=== PATIENT | female | born 1980 | race Caucasian/White ===

== ENCOUNTER 2021-02-09 14:26 | Emergency (ER) | payer OTHER ==
[~2021-02-09] VITALS: Ht 170.2 cm; Wt 122.5 kg
[~2021-02-09 14:26] MED LIST: ANAPROX DS550 MG PO; BENADRYL25 MG PO; HYDROCODON-ACE1 EAC7 PO; IBUPROFEN 800800 M1 PO; NOHOMEMEDICATIONS; NORCO 5-325 TA1 EACH PO; PEPCID AC20 M1 PO; PREDNISONE 10 M10 M1 PO; PREVACID30 M1 PO; PROZAC40 MG; TRAZODONE 150150 M1 PO
[2021-02-09] MEDS ORDERED: LEXAPRO 10 MG T10 M2 PO (14:38)
[2021-02-09] MEDS ORDERED: PROTONIX40 M2 PO (14:38)
[2021-02-09] MEDS ORDERED: WELLBUTRIN XL300 MG PO (14:38)
[2021-02-09] MEDS ORDERED: TOPAMAX100 MG PO (14:39)
[2021-02-09] MEDS ORDERED: OXYBUTYNIN 5 MG5 M2 PO (14:39)
[2021-02-09 14:49] LABS: ABSOLUTE BASOPHILS 0.1 thou/uL (0.0-0.2); ABSOLUTE EOSINOPHILS 0.1 thou/uL (0.0-0.7); ABSOLUTE LYMPHOCYTES 2.5 thou/uL (0.8-5.3); ABSOLUTE MONOCYTES 0.7 thou/uL (0.0-1.2); ABSOLUTE NEUTROPHILS 7.9 thou/uL (1.6-8.1); BASOPHILS 0.7 %; EOSINOPHILS 0.8 %; HEMATOCRIT 38.9 % (37.0-47.0); HEMOGLOBIN 12.4 gm/dL (12.0-15.0); LYMPHOCYTES 21.8 %; MCH 27.4 pg (26.0-34.0); MCHC 31.9 g/dL (28.0-37.0); MCV 85.9 fL (80.0-100.0); MPV 7.2 fl. (7.2-11.1); NUCLEATED RBCS 0 /100WBC; PLATELET COUNT* 332 thou/uL (150-400); POLYS 70.7 %; RBC 4.52 mil/uL (4.20-5.00); RDW-CV 15.5 % (10.5-14.5); WBC 11.2 thou/uL (4.0-11.0)
[2021-02-09 15:00] LABS: CALCIUM 8.5 mg/dL (8.5-10.1); CREATININE 0.8 mg/dL (0.6-1.3); POTASSIUM 3.9 mmol/L (3.5-5.1)
[2021-02-09 15:02] LABS: APTT 24.5 Seconds (25.0-31.3); PROTIME 10.7 Seconds (9.20-11.50)
[2021-02-09 15:14] LABS: ALBUMIN 3.5 g/dL (3.4-5.0); CK-MB MASS 0.7 ng/mL (<0.5-3.6); TOTAL BILIRUBIN 0.3 mg/dL (<0.1-1.0)
[2021-02-09 17:08] VITALS: BP 153/92
--- NOTE | 2021-02-10 10:31 | EKG ---
[place] [address] ELECTROCARDIOGRAM REPORT Name: JERRY KNAPP Room: [facility]#: [id number] Admission: 02/09/21 Attend Phys: Discharge: 02/09/21 Date of : 76 Date of Service: 02/09/21 1430 Report #: [id number] THIS REPORT FOR: //name// [facility] ED Test Date: 2021-02-09 Test Time: 14:30:09 Pat Name: JERRY KNAPP Department: Room: Gender: F Manager Cardiovascular: : 1980 Requested By: Armond Caban Order Number: [id number] MD: Roscoe Cole Measurements Intervals [place] Rate: 87 P: 57 PA: 139 QRS: 42 QRSD: 104 T: 4 QT: 386 QTc: 465 Interpretive Statements Sinus rhythm Probable left atrial enlargement Abnormal inferior Q waves Compared to ECG 02/05/2012 09:20:43 no change Electronically Signed On 02-10-2021 10:31:11 CDT by Roscoe Cole [email or web address] <ELECTRONICALLY SIGNED> By: Roscoe Cole MD, [facility] 02/10/21 1031 1430 1430 Roscoe Cole MD, [facility] /EPI
== END 2021-02-09 17:09 | disposition home or self-care (01) ==
LOC: M.ERS 14:26
PROVIDERS: Family Medicine
DX: R07.89 Other chest pain (principal); Z90.49 Acquired absence of other specified parts of digestive tract; Z98.51 Tubal ligation status